=== PATIENT | female | born 1970 | race Hispanic/Latino ===

== ENCOUNTER 2018-07-06 19:31 | Emergency (ER) | payer MEDICAID ==
[2018-07-06] MEDS ORDERED: ZOFRAN IV ONE (19:40)
--- NOTE | 2018-07-06 19:40 | Emergency Department Report ---
Chief Complaint: Nausea/Vomiting/Diarrhea Stated Complaint: NV Time Seen by Provider: 07/06/18 19:36 - HPI History of Present Illness: Pt is c/o diffuse CP, lower abdominal pain, N/V PMHx DM, HTN, CABG, coronary stent placement non smoker, non drinker MSE Complete MSE screening note: Focused history and physical exam performed. Due to findings the following was ordered: CP and abdominal pain protocol ED Disposition for MSE Condition: Stable
[2018-07-06 20:22] LABS: Hemoglobin 11.2 gm/dl (10.1-14.3); Mean Corpuscular HGB Conc 35 % (30-34); Mean Corpuscular Volume 95 fl (79-97); Platelet Count 303 K/mm3 (140-440); Red Blood Count 3.36 M/mm3 (3.65-5.03); Red Cell Distribution Width 12.9 % (13.2-15.2)
[2018-07-06] MEDS ORDERED: HALDOL IV ONE (21:03)
[2018-07-06] MEDS ORDERED: BENADRYL IV ONE (21:03)
[2018-07-06] MEDS ORDERED: TORADOL IV ONE (21:03)
[2018-07-06 21:07] LABS: Alanine Aminotransferase 10 units/L (7-56); Albumin 4.1 g/dL (3.9-5); BUN/Creatinine Ratio 17; Blood Urea Nitrogen 20 mg/dL (7-17); Calcium 9.6 mg/dL (8.4-10.2); Hemolysis Index 6
[2018-07-06 21:09] LABS: Eosinophils % (Manual) 0 % (0.0-4.3); Platelet Estimate Consistent w Auto; RBC Morphology Normal; Total Cells Counted 100
[2018-07-06 21:17] LABS: Bilirubin,Urine NEG (Negative); Color,Urine Straw (Yellow)
[2018-07-06 21:18] LABS: Blood,Urine NEG (Negative); Urobilinogen,Urine < 2.0 mg/dL (<2.0)
[2018-07-06 21:30] LABS: HCG Qualitative,Urine Negative (Negative)
--- NOTE | 2018-07-06 22:44 | Cat Scan Report ---
PROCEDURE: CT ABDOMEN PELVIS WO CON TECHNIQUE: Computerized axial tomography of the abdomen and pelvis was performed without intravenous contrast. This study is performed without intravascular contrast material and its sensitivity for ab dominal and pelvic pathology, including neoplasms, inflammation, abscess, free fluid, thrombosis, art erial dissection and infarction, is reduced compared with a contrast enhanced study. CT DOSE LENGTH PRODUCT: mGycm HISTORY: nausea and vomiting COMPARISONS: None . FINDINGS: A Fat-containing lesion measuring 1.7 x 1.3 cm is noted in the superior portion of segment 4 of liver . Spleen, pancreas and right adrenal gland are within normal limits. Left adrenal demonstrates an iso dense nodule measuring 1.4 cm. A 13 mm nonobstructive calculus is noted in the right renal pelvis. Th ere is evidence of multiple small calculus fragments in the right mid and lower collecting system. Th ere is moderate degree of right perinephric fat stranding. Left kidney is unremarkable. Mild degree o f right-sided hydronephrosis is noted without any hydroureter. Urinary bladder is mildly distended wi th normal outlines. A few small pockets of air are noted in the nondependent portion of the urinary b ladder. Aorta is of normal caliber. There is no free fluid or free air. Status post cholecystectomy. Small bowel loops are within normal limits. There is moderate degree of residual stool. Appendix is n ormal. A septated cystic lesion is noted within the right ovary measuring 5.1 x 2.7 cm most likely re presenting ovarian cyst versus multiple follicles.. Vertebral height is normal. IMPRESSION: Nonobstructive calculus in the right renal pelvis measuring 13 mm Multiple calculus fragments are noted in the right collecting system most likely secondary to recent lithotripsy. There is mild hydronephrosis and moderate degree perinephric fat stranding suspicious for acute pyelo nephritis. Small pockets of air in the urinary bladder may represent recent instrumentation versus cystitis. A fat-containing lesion in the liver most likely represents intrahepatic lipoma. Small isodense left adrenal nodule is of nonspecific nature. It Can be further evaluated using pre an d postcontrast MRI.. This document is electronically signed by Gianni Orr MD., July 06 2018 10:42:07 PM ET
--- NOTE | 2018-07-07 01:44 | Emergency Department Report ---
ED General Adult HPI - General Chief complaint: Nausea/Vomiting/Diarrhea Stated complaint: NV Time Seen by Provider: 07/06/18 19:36 Source: patient, EMS Mode of arrival: Ambulatory Limitations: No Limitations - History of Present Illness Initial comments: Patient is a 47 -year-old female past medical history of gastroparesis and diabetes who presents with nausea vomiting diarrhea that occurred last night. She states that her abdominal pain is located right side of her belly as a sharp Pain nothing makes it better and nothing makes it worse. Severity scale (0 -10): 3 - Related Data Previous Rx's Medication Instructions Recorded Last Taken Type Promethazine [Phenergan TAB] 25 mg PO Q6HR PRN #20 tab 07/07/18 Unknown Rx Sulfamethoxazole/Trimethoprim 1 each PO BID #14 tablet 07/07/18 Unknown Rx [Bactrim DS TAB] Allergies Allergy/AdvReac Type Severity Reaction Status Date / Time coconut Allergy Swelling Verified 07/06/18 19:34 ED Review of Systems ROS: Stated complaint: NV Other details as noted in HPI Constitutional: denies: chills, fever Eyes: denies: eye pain, eye discharge, vision change ENT: denies: ear pain, throat pain Respiratory: denies: cough, shortness of breath, wheezing Cardiovascular: denies: chest pain, palpitations Endocrine: no symptoms reported Gastrointestinal: abdominal pain, nausea, vomiting, diarrhea Genitourinary: denies: urgency, dysuria, discharge Musculoskeletal: denies: back pain, joint swelling, arthralgia Skin: denies: rash, lesions Neurological: denies: headache, weakness, paresthesias Psychiatric: denies: anxiety, depression Hematological/Lymphatic: denies: easy bleeding, easy bruising ED Past Medical Hx - Past Medical History Previous Medical History?: Yes Hx Hypertension: Yes Hx Heart Attack/AMI: Yes Hx Diabetes: Yes - Surgical History Hx Coronary Stent: Yes Hx Open Heart Surgery: Yes (bypass) - Social History Smoking Status: Never Smoker Substance Use Type: None - Medications Home Medications: Home Medications Medication Instructions Recorded Confirmed Last Taken Type Promethazine [Phenergan TAB] 25 mg PO Q6HR PRN #20 tab 07/07/18 Unknown Rx Sulfamethoxazole/Trimethoprim 1 each PO BID #14 tablet 07/07/18 Unknown Rx [Bactrim DS TAB] ED Physical Exam - General Limitations: No Limitations General appearance: alert, in no apparent distress - Head Head exam: Present: atraumatic, normocephalic - Eye Eye exam: Present: normal appearance - ENT ENT exam: Present: mucous membranes moist - Neck Neck exam: Present: normal inspection - Respiratory Respiratory exam: Present: normal lung sounds bilaterally. Absent: respiratory distress - Cardiovascular Cardiovascular Exam: Present: regular rate, normal rhythm. Absent: systolic murmur, diastolic murmur, rubs, gallop - GI/Abdominal GI/Abdominal exam: Present: soft, normal bowel sounds, other (right cva tenderness) - Extremities Exam Extremities exam: Present: normal inspection - Back Exam Back exam: Present: normal inspection - Neurological Exam Neurological exam: Present: alert, oriented X3 - Psychiatric Psychiatric exam: Present: normal affect, normal mood - Skin Skin exam: Present: warm, dry, intact, normal color. Absent: rash ED Course Vital Signs 07/06/18 07/06/18 07/06/18 19:36 19:43 22:06 Temperature 98.7 F 98.0 F Pulse Rate 115 H 115 H 103 H Respiratory 18 20 15 Rate Blood Pressure 150/93 Blood Pressure 150/93 [Right] O2 Sat by Pulse 100 100 Oximetry 07/06/18 07/06/18 07/06/18 22:09 22:15 22:25 Temperature Pulse Rate 100 H 95 H 94 H Respiratory 19 17 17 Rate Blood Pressure 142/87 142/87 142/87 Blood Pressure [Right] O2 Sat by Pulse 97 99 98 Oximetry 07/06/18 07/06/18 07/06/18 22:30 22:45 23:00 Temperature Pulse Rate 94 H 93 H 94 H Respiratory 17 17 18 Rate Blood Pressure 100/59 142/87 110/65 Blood Pressure [Right] O2 Sat by Pulse 98 97 97 Oximetry 07/06/18 07/06/18 07/06/18 23:15 23:30 23:45 Temperature Pulse Rate 97 H 95 H 96 H Respiratory 17 17 18 Rate Blood Pressure 110/65 117/70 110/65 Blood Pressure [Right] O2 Sat by Pulse 98 98 98 Oximetry 07/07/18 07/07/18 07/07/18 00:00 00:15 00:30 Temperature Pulse Rate 99 H 96 H 100 H Respiratory 15 19 18 Rate Blood Pressure 129/73 117/70 117/74 Blood Pressure [Right] O2 Sat by Pulse 100 95 93 Oximetry 07/07/18 07/07/18 07/07/18 00:45 01:00 01:15 Temperature Pulse Rate 99 H 100 H 109 H Respiratory 18 15 16 Rate Blood Pressure 117/74 150/85 150/85 Blood Pressure [Right] O2 Sat by Pulse 98 99 99 Oximetry 07/07/18 07/07/18 01:30 01:45 Temperature Pulse Rate 111 H 106 H Respiratory 18 15 Rate Blood Pressure 160/81 150/85 Blood Pressure [Right] O2 Sat by Pulse 99 99 Oximetry ED Medical Decision Making - Lab Data Result diagrams: 07/06/18 19:59 07/06/18 19:59 Lab Results 07/06/18 07/06/18 07/06/18 Range/Units 19:59 19:59 21:00 WBC 15.8 H (4.5-11.0) K/mm3 RBC 3.36 L (3.65-5.03) M/mm3 Hgb 11.2 (10.1-14.3) gm/dl Hct 32.0 (30.3-42.9) % MCV 95 (79-97) fl MCH 33 H (28-32) pg MCHC 35 H (30-34) % RDW 12.9 L (13.2-15.2) % Plt Count 303 (140-440) K/mm3 Add Manual Diff Complete Total Counted 100 Seg Neutrophils % Visual Education Director Seg Neuts % (Manual) 93.0 H (40.0-70.0) % Band Neutrophils % 0 % Lymphocytes % (Manual) 4.0 L (13.4-35.0) % Reactive Lymphs % (Man) 0 % Monocytes % (Manual) 2.0 (0.0-7.3) % Eosinophils % (Manual) 0 (0.0-4.3) % Basophils % (Manual) 1.0 (0.0-1.8) % Metamyelocytes % 0 % Myelocytes % 0 % Promyelocytes % 0 % Blast Cells % 0 % Nucleated RBC % Not Reportable Seg Neutrophils # Man 14.7 H (1.8-7.7) K/mm3 Band Neutrophils # 0.0 K/mm3 Lymphocytes # (Manual) 0.6 L (1.2-5.4) K/mm3 Abs React Lymphs (Man) 0.0 K/mm3 Monocytes # (Manual) 0.3 (0.0-0.8) K/mm3 Eosinophils # (Manual) 0.0 (0.0-0.4) K/mm3 Basophils # (Manual) 0.2 H (0.0-0.1) K/mm3 Metamyelocytes # 0.0 K/mm3 Myelocytes # 0.0 K/mm3 Promyelocytes # 0.0 K/mm3 Blast Cells # 0.0 K/mm3 WBC Morphology Not Reportable Hypersegmented Neuts Not Reportable Hyposegmented Neuts Not Reportable Hypogranular Neuts Not Reportable Smudge Cells Not Reportable Toxic Granulation Not Reportable Toxic Vacuolation Not Reportable Dohle Bodies Not Reportable Pelger-Huet Anomaly Not Reportable Genna Rods Not Reportable Platelet Estimate Consistent w auto Clumped Platelets Not Reportable Plt Clumps, EDTA Not Reportable Large Platelets Not Reportable Giant Platelets Not Reportable Platelet Satelliting Not Reportable Plt Morphology Comment Not Reportable RBC Morphology Normal Dimorphic RBCs Not Reportable Polychromasia Not Reportable Hypochromasia Not Reportable Poikilocytosis Not Reportable Anisocytosis Not Reportable Microcytosis Not Reportable Macrocytosis Not Reportable Spherocytes Not Reportable Pappenheimer Bodies Not Reportable Sickle Cells Not Reportable Target Cells Not Reportable Tear Drop Cells Not Reportable Ovalocytes Not Reportable Helmet Cells Not Reportable Brown-Keenes Bodies Not Reportable [place] Rings Not Reportable Iram Cells Not Reportable Bite Cells Not Reportable Crenated Cell Not Reportable Elliptocytes Not Reportable Acanthocytes (Spur) Not Reportable Rouleaux Not Reportable Hemoglobin C Crystals Not Reportable Schistocytes Not Reportable Malaria parasites Not Reportable Marc Bodies Not Reportable Hem Pathologist Commnt No Sodium 134 L (137-145) mmol/L Potassium 3.9 (3.6-5.0) mmol/L Chloride 96.4 L (98-107) mmol/L Carbon Dioxide 19 L (22-30) mmol/L Anion Gap 23 mmol/L BUN 20 H (7-17) mg/dL Creatinine 1.2 (0.7-1.2) mg/dL Estimated GFR 48 ml/min BUN/Creatinine Ratio 17 % Glucose 378 H (65-100) mg/dL Calcium 9.6 (8.4-10.2) mg/dL Total Bilirubin 0.60 (0.1-1.2) mg/dL AST 8 (5-40) units/L ALT 10 (7-56) units/L Alkaline Phosphatase 85 (35-129) units/L Troponin T < 0.010 (0.00-0.029) ng/mL Total Protein 7.2 (6.3-8.2) g/dL Albumin 4.1 (3.9-5) g/dL Albumin/Globulin Ratio 1.3 % Lipase 26 (13-60) units/L Urine Color Straw (Yellow) Urine Turbidity Clear (Clear) Urine pH 6.0 (5.0-7.0) Ur Specific [place] 1.012 (1.003-1.030) Urine Protein 30 mg/dl (Negative) mg/dL Urine Glucose (UA) >=500 (Negative) mg/dL Urine Ketones Tr (Negative) mg/dL Urine Blood Neg (Negative) Urine Nitrite Neg (Negative) Urine Bilirubin Neg (Negative) Urine Urobilinogen < 2.0 (<2.0) mg/dL Ur Leukocyte Esterase Mod (Negative) Urine WBC (Auto) 84.0 H (0.0-6.0) /HPF Urine RBC (Auto) 3.0 (0.0-6.0) /HPF U Epithel Cells (Auto) < 1.0 (0-13.0) /HPF Urine HCG, Qual Negative (Negative) - Radiology Data Radiology results: report reviewed CT noncontrast of abdomen shows nonobstructive calculus in the right renal pelvis measuring 13 mm and mild hydroureter nephrosis a moderate degree of perinephric fat stranding suspicious for pyelonephritis. - Medical Decision Making Cdx: Pyleonephritis ddx: SBO, Gastritis, Renal colic I will get CT scan of abdomen IV Haldol IV Benadryl, IV Toradol CBC BMP and urinalysis. Urinalysis is concerning for UTI PATIENT IV Rocephin patient has stopped having nausea and vomiting I will discharge the patient home. Critical care attestation.: If time is entered above; I have spent that time in minutes in the direct care of this critically ill patient, excluding procedure time. ED Disposition Clinical Impression: Pyelonephritis, Gastroparesis Nausea and vomiting Qualifiers: Vomiting type: unspecified Vomiting Intractability: non-intractable Qualified Code(s): R11.2 - Nausea with vomiting, unspecified Disposition: DC-01 TO HOME OR SELFCARE Is pt being admited?: No Does the pt Need Aspirin: No Condition: Stable Instructions: Acute Nausea and Vomiting (ED) Prescriptions: Promethazine [Phenergan TAB] 25 mg PO Q6HR PRN #20 tab PRN Reason: Nausea Sulfamethoxazole/Trimethoprim [Bactrim DS TAB] 1 each PO BID #14 tablet Referrals: JOHN BAHENA MD [Staff Physician] - 3-5 Days
[2018-07-07 01:48] VITALS: BP 150/85
[2018-07-07] MEDS ORDERED: ROCEPHIN/NS 1 GM/50 ML 1 GM/50 ML BAG IV ONE (02:48)
== END 2018-07-07 05:27 | disposition home or self-care (01) ==
LOC: ED 19:31
DX: N12 Tubulo-interstitial nephritis, not specified as acute or chronic (principal); K31.84 Gastroparesis; I10 Essential (primary) hypertension; I25.2 Old myocardial infarction; E11.9 Type 2 diabetes mellitus without complications
CPT/HCPCS: 36415; 74176; 80053; 81001; 81025; 83690; 84484; 85007; 85025; 93005; 93010; 96365; 96375; 99284; J0696; J1200; J1630; J1885; J2405